=== PATIENT | female | born 1995 | race Caucasian/White ===

== ENCOUNTER 2018-02-05 01:18 | Emergency (ER) | payer OTHER ==
[2018-02-05] MEDS: KETOROLAC 60 MG INJ IM (04:15)
== END 2018-02-05 05:19 | disposition home or self-care (01) ==
LOC: FTE 01:18
DX: M25.562 Pain in left knee (principal)
CPT/HCPCS: 73562; 81025; 96372; 99284-25

== ENCOUNTER 2018-02-07 18:29 | Emergency (ER) | payer OTHER | END 2018-02-07 20:27 | disposition home or self-care (01) | LOC: FTE 18:29 | DX: M25.562 Pain in left knee (principal) | CPT/HCPCS: 99283 ==

== ENCOUNTER 2018-10-16 10:04 | Emergency (ER) | payer OTHER ==
[2018-10-16] MEDS: HYDROCODONE/APAP (5/325) TAB PO (10:48)
== END 2018-10-16 12:10 | disposition home or self-care (01) ==
LOC: FTE 10:04
DX: S93.401A Sprain of unspecified ligament of right ankle, initial encounter (principal); S90.01XA Contusion of right ankle, initial encounter; X50.1XXA Overexertion from prolonged static or awkward postures, initial encounter; Y92.9 Unspecified place or not applicable
CPT/HCPCS: 73590; 73610-RT; 73630; 99283-25

== ENCOUNTER → 2018-11-04 | Emergency (ER) | payer OTHER ==
[2018-11-04] MEDS: CYCLOBENZAPRINE 10 MG TAB PO (16:10)
[2018-11-04] MEDS: ACETAMINOPHEN 500 MG TAB PO (16:11)
== END | disposition home or self-care (01) ==
LOC: FTE 14:31
DX: S80.12XA Contusion of left lower leg, initial encounter (principal); S80.01XA Contusion of right knee, initial encounter; X58.XXXA Exposure to other specified factors, initial encounter; Y92.9 Unspecified place or not applicable
CPT/HCPCS: 99283; Z7502

== ENCOUNTER 2018-12-04 13:19 | Emergency (ER) | payer OTHER | END 2018-12-04 15:12 | disposition home or self-care (01) | LOC: FTE 13:19 | DX: H66.001 Acute suppurative otitis media without spontaneous rupture of ear drum, right ear (principal); J20.9 Acute bronchitis, unspecified; J02.9 Acute pharyngitis, unspecified | CPT/HCPCS: 99283; Z7502 ==